=== PATIENT | male | born 1970 | race American Indian/Alaskan Native ===

== ENCOUNTER 2019-06-08 07:24 | Day surgery (SDC) | payer OTHER ==
[2019-06-08] MEDS ORDERED: SODIUM CHLORIDE 0.9% 1000 ML 1,000 ML IV SCH ×2 (07:30→09:00)
--- NOTE | 2019-06-08 07:59 | Anesthesia Day of Surgery ---
Anesthesia Day of Surgery - Day of Surgery Patient Examined: Yes Patient H&P Reviewed: Yes Patient is NPO: Yes
--- NOTE | 2019-06-08 08:03 | Anesthesia Consultation ---
Anesthesia Consult and Med Hx Date of service: 06/08/19 - Airway Anesthetic Teeth Evaluation: Crowns (And bonding) ROM Head & Neck: Adequate Mental/Hyoid Distance: Adequate Mallampati Class: Class II Intubation Access Assessment: Probably Good - Pre-Operative Health Status ASA Pre-Surgery Classification: ASA1 Proposed Anesthetic Plan: MAC - Gastrointestinal Hx Ulcer: Yes Hx Gastroesophageal Reflux Disease: Yes
[2019-06-08] MEDS ORDERED: PROPOFOL 200 MG/20 ML VIAL IV ONE ×2 (08:08)
[2019-06-08] MEDS ORDERED: fentaNYL 100 MCG/2 ML INJ ONE (08:32)
[2019-06-08] MEDS ORDERED: LIDOCAINE (2%) 20 MG/1 ML VIAL 20 ML MDV INFILTRATI ONE (08:36)
--- NOTE | 2019-06-08 09:16 | Procedure Note ---
Date of procedure: 06/08/19 Pre-op diagnosis: GERD/ Colon Polyp Screening Post-op diagnosis: other (Mild to Moderate Erosive Esophagitis/Gastritis/No Peptic Ulcer Disease noted/Normal Colon Mucosa) Procedure: EGD with Biopsy and Colonoscopy Anesthesia: DESTINY Surgeon: CASSIUS BORREGO Estimated blood loss: minimal Pathology: list Specimen disposition: to lab Condition: stable Disposition: same day (Treat with PPI and avoid aspirin and NSAID for 4 days; otherwise resume home medication and follow up in 1 to 2 weeks ([phone]).)
--- NOTE | 2019-06-08 09:28 | Operative Report ---
PROCEDURE: Colonoscopy INDICATIONS: This is a 48-year-old -Citizen Of [place] gentleman who had a colonoscopy done as part of colon polyp screening, no prior history of colonoscopy. No family history of cancer. DESCRIPTION OF THE PROCEDURE: Initial rectal exam was unremarkable. Instrument was passed through the rectum onto the cecum, which was identified with ileocecal valve and the appendiceal orifice. Visualization was fair to good. The terminal ileum was intubated showed normal mucosa. The cecum was examined on the retroverted view. No additional pathology was noted. The scope was withdrawn to the hepatic flexure and reintroduced. The cecum, ascending colon, transverse colon, descending colon, and sigmoid showed normal mucosa. There was no evidence of any polyps, colitis or diverticular disease and the rectum appeared normal on the retroverted view without any evidence of internal hemorrhoid. ASSESSMENT: Colon polyp screening, normal colon mucosa. No colon polyps, diverticular disease or internal hemorrhoids noted. Normal ileal mucosa. PLAN: Plan is to have advised the patient resume home medication. Avoid aspirin-related products for the next 3-4 days. Because of biopsy done during the EGD, treat the patient with Protonix because of the EGD findings of [id number] erosive esophagitis and gastritis. The patient will be asked to follow up in the office in 1-2 weeks' time and procedure was done in the GI lab with assistance of the GI lab team, which included Karli RAMESH and Angelica oro and with assistance of anesthesia. JOB# [id number] GIANLUCA/PRETTY
--- NOTE | 2019-06-08 09:33 | Operative Report ---
PROCEDURE: Esophagogastroduodenoscopy with biopsy. INDICATIONS: A 48-year-old -[place] gentleman who has been having some GERD symptoms. EGD was done to assess for the problem. He gives a prior history of peptic ulcer disease. DESCRIPTION OF PROCEDURE: The procedure was done after getting informed consent with MAC anesthesia. Instrument was passed through the hypopharynx into the esophagus, which showed some [id number] erosive esophagitis. Biopsy was done from the distal esophagus as well as from the mid esophagus to assess for the severity of the erosive esophagitis and to see if there was any associated eosinophilic esophagitis. Stomach showed some antral gastritis. No ulcers were noted in the straight or the retroverted view. The pylorus is patent. The duodenum in the first and the second portion appeared normal. Biopsy was done from the gastric antrum, gastric body and angular incisura to rule out for H. pylori and atrophic gastritis. There was minimal bleeding associated with the procedure. No complications associated with the procedure. ASSESSMENT: Gastroesophageal reflux disease symptoms, [id number] erosive esophagitis, gastritis. PLAN: To treat the patient with PPI, have the patient to avoid aspirin and aspirin-related products for the next few days, otherwise resume home medication. The patient is to have a colonoscopy done as part of colon polyp screening and advised to follow up in the office in 1-2 weeks' time. The procedure was done in the GI lab with assistance of the GI lab team, which included Karli RAMESH Saundra and with assistance of Anesthesia. JOB# [id number] GIANLUCA/PRETTY
[2019-06-08 10:14] VITALS: BP 125/81
--- NOTE | 2019-06-08 11:13 | Post Anesthesia Evaluation ---
- Post Anesthesia Evaluation Patient Participated: Yes Airway Patent: Yes Stable Respiratory Function: Yes Nausea/Vomiting: No Temp > 96.8F: Yes Pain Manageable: Yes Adequeate Hydration: Yes Anesthesia Complications: No Block Receding Appropriately: Not Applicable Patient on Ventilator: No
== END 2019-06-08 07:25 | disposition home or self-care (01) ==
LOC: GIO 07:24
DX: Z12.11 Encounter for screening for malignant neoplasm of colon (principal); K21.0 Gastro-esophageal reflux disease with esophagitis; K29.70 Gastritis, unspecified, without bleeding; Z79.899 Other long term (current) drug therapy
CPT/HCPCS: 43239; 45378; 88305; 88342; J2704; J3010; J7030